=== PATIENT | female | born 1970 | race Hispanic/Latino ===

== ENCOUNTER 2019-11-25 08:23 | Day surgery (SDC) | payer OTHER ==
[2019-11-18 11:23] LABS: BASOPHILS % (AUTO) 0.6 % (0.0-5.0); EOSINOPHILS % (AUTO) 5.3 % (0.0-8.0); HEMATOCRIT 44.4 % (36-48); LYMPHOCYTES % (AUTO) 42.9 % (21.0-51.0); MEAN CORPUSCULAR HEMOGLOBIN 25.8 pg (27.0-33.0); MEAN CORPUSCULAR VOLUME 80.6 fL (79-99); MONOCYTES % (AUTO) 5.9 % (3.0-13.0); NEUTROPHILS % (AUTO) 45.1 % (40.0-77.0); PLATELET COUNT (AUTO) 440 K/uL (130-400); RED BLOOD CELL COUNT(AUTO) 5.51 MIL/uL (4.00-5.50); RED CELL DISTRIBUTION WIDTH 15.8 % (11.0-15.5); WHITE BLOOD COUNT (AUTO) 8.5 K/uL (4.8-10.8)
[2019-11-18 11:33] LABS: CREATININE 0.8 mg/dL (0.5-1.5); POTASSIUM 3.4 mmol/L (3.5-5.1)
[~2019-11-25] VITALS: Ht 152.4 cm; Wt 102.4 kg
[2019-11-25] VITALS (19 sets, daily range): BP systolic 108–196; BP diastolic 56–101
[2019-11-25] MEDS: CEFAZOLIN SODIUM 1 GM VIAL IVP SCH ×2 (06:00→09:44)
[~2019-11-25 08:23] MED LIST: CALDOLOR 800MG+NS 250ML 250 ML IV SCH; HYDR25TA PO; LACTATED RINGERS 1000ML 1,000 ML IV SCH; METF-444 PO; SPRINTEC PO
[2019-11-25] MEDS ORDERED: SODIUM CHLORIDE 0.9% 1000ML 1,000 ML IV ONE (08:54)
[2019-11-25] MEDS ORDERED: DEXAMETHASONE SOD PHOSPHATE 10MG/ML 1ML VIAL ONE (09:25)
[2019-11-25] MEDS ORDERED: SUCCINYLCHOLINE CHLORIDE 20 MG/ML 10 ML VIAL ONE (09:25)
[2019-11-25] MEDS ORDERED: LIDOCAINE PF 2% 5ML ABBOJECT ONE (09:25)
[2019-11-25] MEDS ORDERED: ONDANSETRON HCL 4 MG/2 ML VIAL ONE (09:25)
[2019-11-25] MEDS ORDERED: MIDAZOLAM HCL 1 MG/ML 2ML VIAL ONE (09:26)
[2019-11-25] MEDS ORDERED: PROPOFOL 10 MG/ML 20ML VIAL IV ONE (09:26)
[2019-11-25] MEDS ORDERED: FENTANYL CITRATE PF 50 MCG/1 ML 2ML VIAL ONE (09:26)
[2019-11-25] MEDS ORDERED: ROCURONIUM 10MG/1ML SYR 10 MG/ML ML ONE (09:26)
[2019-11-25] MEDS ORDERED: GLYCOPYRROLATE 1 MG/5 ML SYRINGE ONE (09:26)
[2019-11-25] MEDS ORDERED: NEOSTIGMINE 5MG/5ML SYR IV ONE (09:26)
[2019-11-25] MEDS ORDERED: LABETALOL HCL 5 MG/ML 20ML VIAL IV ONE (10:47)
[2019-11-25] MEDS ORDERED: HYDRALAZINE HCL 20 MG/ML VIAL ONE (11:03)
--- NOTE | 2019-11-25 11:25 | NUR ---
POST OP RECEIVED PT FROM PACU. SHERMAN RN FROM PACU GAVE ME REPORT. PT MOANING AT TIME AND C/O LOWER ABDOMEN PAIN. PT ORIENTED TO ROOM AND CALL LIGHT. WILL CONTINUE TO MONITOR PT. PT HAS PERIPAD WITH A SMALL AMT OF BLOOD NOTED
--- NOTE | 2019-11-25 11:55 | NUR ---
REPORT CALLED DR MONTANEZ AND REPORTED C/O PAIN TO LOWER ABDOMEN POST SURGERY. RECEIVED ORDERS TO GIVE DEMEROL 25 MG IM X1
[2019-11-25] MEDS ORDERED: MEPERIDINE-PF 25 MG/ML SYG ONE (11:56)
--- NOTE | 2019-11-25 12:40 | NUR ---
DISCHARGE PT AND GUARD GIVEN D/C INSTRUCTIONS AND PAPERWORK WITH SCRIPTS. BOTH VOICED UNDERSTANDING. PT TAKEN OUT VIA W/C BY TIERRA WHITAKER. PT IN NO DISTRESS AT THIS TIME.
== END 2019-11-25 12:40 | disposition home or self-care (01) ==
LOC: DAH 08:23
PROVIDERS: ATTEND Obstetrics & Gynecology
DX: N92.0 Excessive and frequent menstruation with regular cycle (principal); I10 Essential (primary) hypertension; E11.9 Type 2 diabetes mellitus without complications; Z20.828 Contact with and (suspected) exposure to other viral communicable diseases
CPT/HCPCS: 36415 ×2; 58563; 80048; 82948 ×2; 84703; 85025; 86850 ×2; 86900 ×2; 86901 ×2; A4213; A4215; A4221; A4222; A4223; A4351; A4355; A4663; A6260; C9803; J0330; J0360; J0690; J1100; J1741; J2001; J2175; J2250; J2405; J2704; J2710; J3010; J3490 ×2; J7030 ×3; U0003